=== PATIENT | female | born 1980 | race African-American/Black ===

== ENCOUNTER 2017-06-18 05:00 | Day surgery (SDC) | payer OTHER ==
[2017-06-13 11:42] VITALS: BMI 30.9
[2017-06-18] MEDS ORDERED: PROPOFOL 20 ML ONE (12:08)
[2017-06-18] MEDS ORDERED: MIDAZOLAM HCL 2 MG/2 ML SINGLE DOSE VIAL ONE (12:08)
--- NOTE | 2017-06-18 12:18 | HP ---
History & Physical Update - History History: No Change - Physical Physical: No Change - Assessment Assessment: No Change - Plan Plan: No Change
--- NOTE | 2017-06-18 12:21 | OP ---
Operative Note - Note: Pre-Operative Diagnosis: endomdetrial polyp. menorrhagia Operation: Hysteroscopic myomectomy. suction DC Post-Operative Diagnosis: Same as Pre-op Surgeon: Ana Lilia Lozano Anesthesia: General Operative Report Dictated: Yes
[2017-06-18] MEDS ORDERED: DEXAMETHASONE SOD PHOSPHATE 4 MG/1 ML VIAL ONE (12:34)
[2017-06-18] MEDS ORDERED: KETOROLAC TROMETHAMINE 30 MG/1 ML VIAL ONE ×3 (12:34→12:35)
[2017-06-18] MEDS ORDERED: oxyCODONE HCL 5 MG TABLET PO PRN (13:02)
[2017-06-18] MEDS ORDERED: ONDANSETRON 4 MG/2 ML VIAL IVPUSH PRN (13:02)
[2017-06-18] MEDS ORDERED: PROMETHAZINE HCL 25 MG/1 ML VIAL IVPUSH PRN (13:02)
[2017-06-18] MEDS ORDERED: LACTATED RINGERS SOLUTION 1,000 ML IV SCH (13:15)
[2017-06-18 13:50] VITALS: TEMP 98.2
[2017-06-18 14:34] VITALS: BP 134/78; PULSE 62
--- NOTE | 2017-06-19 10:42 | OP ---
DATE OF OPERATION: 06/18/2017 PREOPERATIVE DIAGNOSES: Endometrial polyps, menorrhagia, and rectal polyp. OPERATION: Hysteroscopic myomectomy, suction dilatation and curettage, and removal of rectal polyp. ANESTHESIA: General. FINDINGS: Numerous endometrial polyps seen in the endometrial cavity and rectal polyp in the rectum. DESCRIPTION OF PROCEDURE: Patient was taken to the operating room, placed in dorsal lithotomy position, prepped and draped in the usual sterile fashion. A timeout was performed in accordance with hospital regulation. Speculum was placed in the vagina. Anterior lip of the cervix was grasped with a single-tooth tenaculum. Cervix was then dilated to accommodate the operative hysteroscope. Cautery was then used to cut numerous endometrial polyps, approximately 6 of them out of the endometrial cavity, followed by suction D&C. After all polyps had been removed and suction D&C performed, all instruments then removed. Attention was then drawn to the rectal polyp. Rectal polyp was seen, and cutting of the rectal polyp was done. Interrupted 3-0 Vicryl sutures were then used to approximate the edges. Hemostasis was achieved. The patient tolerated the procedure well and was taken to recovery room in stable condition. SILVIA TAMAYO M.D. [id number]
--- NOTE | 2017-06-19 14:30 | PATH ---
Surgical Pathology Report Patient Name: YONAS ALBERTS [facility]. Rec. #: [id number] /Age/Gender: 1980 (Age: 37) / F Account: [id number] Location: [facility] SUR[facility] Taken: 06/18/2017 Received: 06/18/2017 Reported: 06/19/2017 Physicians: Ana Lilia Lozano M.D. Specimen(s) Received A: POLYP B: SKIN TAG Clinical History Endometrial polyps Final Diagnosis A. ENDOMETRIAL POLYPS, SUCTION DILATION AND CURETTAGE: FRAGMENTS OF ENDOMETRIAL POLYPS. BACKGROUND PROLIFERATIVE ENDOMETRIUM. FRAGMENTS OF BENIGN ENDOCERVICAL TISSUE. B. SKIN TAG, EXCISION: FIBROEPITHELIAL POLYP. Electronically Signed Toni Aviles M.D. Gross Description A. Received in formalin, labeled "polyp" multiple fragments of jensen-red soft tissue 4.5 x 2.5 x 0.5 cm in aggregate dimension. Submitted entirely in two cassettes. B. Received in formalin, labeled "skin tag" is a 1.1 x 0.8 x 0.3 cm polypoid fragment of jensen-brown skin. The specimen is bisected and submitted entirely in one cassette. AF/06/18/2017 final/06/18/2017
== END 2017-06-18 14:35 | disposition home or self-care (01) ==
LOC: JASU-SURG 05:00
PROVIDERS: ATTEND Obstetrics & Gynecology
PROC: 0UB98ZX Excision of Uterus, Via Natural or Artificial Opening Endoscopic, Diagnostic (ICD-10-PCS; principal; 2017-06-18 11:30)
PROC: 0DBP0ZX Excision of Rectum, Open Approach, Diagnostic (ICD-10-PCS; 2017-06-18 11:30)
DX: N84.0 Polyp of corpus uteri (principal); K62.1 Rectal polyp
CPT/HCPCS: 84703; 88304-TC; 88305-TC; 94760